=== PATIENT | female | born 1930 | race African-American/Black ===

== ENCOUNTER 2021-06-20 18:59 | Inpatient (IN) | payer MEDICARE, MEDICAID ==
[~2021-06-20] VITALS: Ht 167.6 cm; Wt 68.0 kg
[~2021-06-20 18:59] MED LIST: DILTIAZEM; DIOVAN
[2021-06-20 20:13] LABS: CHLORIDE 101 mEq/L (98-107)
[2021-06-20 20:15] LABS: BASOPHILS % 0.5 % (0.0-2.0); EOSINOPHILS % 0.4 % (0.0-5.0); HEMATOCRIT. 41.5 % (36.0-48.0); HEMOGLOBIN. 13.8 g/dL (12.0-16.0); LYMPHOCYTES % 9.7 % (20.0-50.0); MEAN CORPUSCULAR HEMOGLOBIN 26.2 pg (28.0-32.0); MEAN CORPUSCULAR VOLUME 78.9 fL (81.0-99.0); MEAN PLATELET VOLUME 7.8 fl (7.4-10.4); MONOCYTES % 12.5 % (2.0-8.0); NEUTROPHILS % 76.9 % (40.0-76.0); PLATELET 309 x1000/uL (130-400); RED BLOOD CELL COUNT 5.26 mill/uL (4.2-5.4); RED CELL DISTRIBUTION WIDTH 14.1 % (11.6-14.6)
[2021-06-20] MEDS ORDERED: CEFTRIAXONE 1 G PREMIX 50 ML IV ONE (22:45)
[2021-06-20] MEDS ORDERED: AZITHROMYCIN 500MG/250ML 250 ML IV ONE (22:45)
[2021-06-21] MEDS ORDERED: METOPROLOL TARTRATE 5MG/5ML VIAL IV SCH (02:30)
[2021-06-21] MEDS ORDERED: METOPROLOL SUCCINATE 50MG ER TABLET PO STA (03:34)
[2021-06-21] MEDS ORDERED: SODIUM CHLORIDE 0.9% 500 ML IV ONE (06:15)
[2021-06-21] MEDS ORDERED: DIGOXIN 500MCG/2ML AMP IV NR (06:45)
[2021-06-21] MEDS ORDERED: DIGOXIN 500MCG/2ML AMP IV SCH (07:45)
[2021-06-21] MEDS ORDERED: LORAZEPAM 0.5MG TABLET PO PRN (10:00)
[2021-06-21] MEDS ORDERED: MAGNESIUM/ALUMINUM HYDROXIDE/SIMETHICONE 30ML UDC PO PRN (10:00)
[2021-06-21] MEDS ORDERED: NA PHOS,M-B/NA PHOS,DI-BA ENEMA 118ML PR PRN (10:00)
[2021-06-21] MEDS ORDERED: CLONIDINE 0.1MG TABLET PO PRN (10:00)
[2021-06-21] MEDS: DEXAMETHASONE 10 MG/ML VIAL IV SCH (10:00)
[2021-06-21] MEDS ORDERED: ONDANSETRON HCL 4MG/2ML INJ IV PRN (10:00)
[2021-06-21] MEDS ORDERED: DEXTROSE 50% WATER 50ML SYRINGE IV PRN (10:00)
[2021-06-21] MEDS: DEXT 5%/0.9% NACL 1,000 ML IV SCH (10:00)
[2021-06-21] MEDS ORDERED: ACETAMINOPHEN 325MG TABLET PO PRN (10:00)
[2021-06-21] MEDS ORDERED: MORPHINE SULFATE 2 MG/ML CPJ (NOT FOR IM USE) IV PRN (10:00)
[2021-06-21] MEDS ORDERED: HYDROCODONE/ACETAMINOPHEN 5/325MG TABLET PO PRN (10:00)
[2021-06-21] MEDS ORDERED: DIPHENHYDRAMINE 50MG/ML VIAL IV PRN (10:00)
[2021-06-21] MEDS ORDERED: DOCUSATE SODIUM 100MG CAPSULE PO PRN (10:00)
[2021-06-21] MEDS ORDERED: ACETAMINOPHEN 650MG SUPP PR PRN (10:00)
[2021-06-21] MEDS ORDERED: GUAIFENESIN 200MG/10ML SUGAR FREE UDC PO PRN (10:00)
[2021-06-21] MEDS ORDERED: NALOXONE HCL 0.4MG/ML VIAL IV PRN (10:15)
[2021-06-21 11:10] LABS: BG BASE EXCESS 1.2 mmol/L (-2.0-2.0); BG CARBOXYHEMOGLOBIN 0.3 % (0.5-1.5); BG DEOXYHEMOGLOBIN 5.1 % (0.0-5.0); BG HCO3 ACT 25.6 mmol/L (22.0-26.0); BG METHEMOGLOBIN 0.1 % (0.0-1.5); BG OXYGEN SATURATION 94.9 % (92.0-98.5); BG OXYHEMOGLOBIN 94.5 % (94.0-97.0); BG PH 7.424 (7.350-7.450); BG PO2 76.2 mmHg (75.0-100.0); BG SAMPLE SITE RIGHT BRACHIAL; BG TOTAL HEMOGLOBIN 13.7 g/dL (12.0-18.0); BG VENT MODE NASAL CANNULA
[2021-06-21] MEDS: ALBUTEROL 6.7GM HFA INHALER ORI SCH ×2 (12:00→17:14)
[2021-06-21 12:02] LABS: INR 1.1; PROTHROMBIN TIME 11.7 sec (9.6-11.0)
[2021-06-21 12:03] LABS: CHLORIDE 102 mEq/L (98-107)
[2021-06-21] MEDS: ENOXAPARIN 80MG/0.8ML SYR SUBCUT SCH (13:00)
[2021-06-21] MEDS: INSULIN LISPRO 100 UNITS/ML SUBCUT SCH ×3 (13:20→22:02)
[2021-06-21] MEDS: BLOOD SUGAR DIAGNOSTIC STRIP TEST SCH ×3 (13:46→22:02)
[2021-06-21 17:57] LABS: CREATINE KINASE MB FRACTION 2.4 ng/mL (0.5-3.6)
[2021-06-21] MEDS: FAMOTIDINE 20MG TABLET PO SCH (22:00)
[2021-06-21] MEDS: AZITHROMYCIN 500 MG in DEXT 5% WATER 250 ML IV SCH (22:40)
[2021-06-21] MEDS ORDERED: CEFTRIAXONE 1 G PREMIX 50 ML IV SCH (23:00)
[2021-06-22] MEDS: ALBUTEROL 6.7GM HFA INHALER ORI SCH
[2021-06-22] MEDS: AZITHROMYCIN 500 MG in DEXT 5% WATER 250 ML IV SCH (00:07)
[2021-06-22] MEDS: ENOXAPARIN 80MG/0.8ML SYR SUBCUT SCH ×2 (01:00→14:13)
[2021-06-22] MEDS: DEXT 5%/0.9% NACL 1,000 ML IV SCH ×2 (02:40→21:55)
[2021-06-22] MEDS: BLOOD SUGAR DIAGNOSTIC STRIP TEST SCH ×4 (07:30→21:51)
[2021-06-22] MEDS: INSULIN LISPRO 100 UNITS/ML SUBCUT SCH ×4 (07:30→21:00)
[2021-06-22 09:32] LABS: BG BASE EXCESS 0.9 mmol/L (-2.0-2.0); BG CARBOXYHEMOGLOBIN 0.2 % (0.5-1.5); BG DEOXYHEMOGLOBIN 5.9 % (0.0-5.0); BG FRACTION INSPIRED OXYGEN 36; BG HCO3 ACT 25.5 mmol/L (22.0-26.0); BG METHEMOGLOBIN 0.2 % (0.0-1.5); BG OXYGEN SATURATION 94.1 % (92.0-98.5); BG OXYHEMOGLOBIN 93.7 % (94.0-97.0); BG PCO2 40.7 mmHg (35.0-45.0); BG PH 7.415 (7.350-7.450); BG PO2 71.4 mmHg (75.0-100.0); BG SAMPLE SITE RIGHT BRACHIAL; BG TOTAL HEMOGLOBIN 12.4 g/dL (12.0-18.0); BG VENT MODE NASAL CANNULA
[2021-06-22 10:06] LABS: BASOPHILS % 0.4 % (0.0-2.0); EOSINOPHILS % 0.2 % (0.0-5.0); HEMATOCRIT. 36.1 % (36.0-48.0); HEMOGLOBIN. 11.8 g/dL (12.0-16.0); LYMPHOCYTES % 18.4 % (20.0-50.0); MEAN CORPUSCULAR HEMOGLOBIN 26.1 pg (28.0-32.0); MEAN CORPUSCULAR VOLUME 79.7 fL (81.0-99.0); MEAN PLATELET VOLUME 7.3 fl (7.4-10.4); PLATELET 303 x1000/uL (130-400); RED BLOOD CELL COUNT 4.53 mill/uL (4.2-5.4); RED CELL DISTRIBUTION WIDTH 14.2 % (11.6-14.6)
[2021-06-22 10:18] LABS: CHLORIDE 109 mEq/L (98-107)
[2021-06-22 12:37] VITALS: BP 150/63
[2021-06-22] MEDS: ASPIRIN 81MG EC TABLET PO SCH (14:14)
[2021-06-22] MEDS: DILTIAZEM HCL 30MG TABLET PO SCH ×3 (14:24→22:03)
[2021-06-22] MEDS: DEXAMETHASONE 10 MG/ML VIAL IV SCH (14:30)
[2021-06-22] MEDS ORDERED: VALS160T28 PO (15:12)
[2021-06-22] MEDS ORDERED: TRIA1TAB92 MT (15:12)
[2021-06-22] MEDS ORDERED: DILT240C94 PO (15:12)
[2021-06-22] MEDS ORDERED: TRIA1TAB92 PO (15:23)
[2021-06-22 16:00] VITALS: BP 122/56
[2021-06-22 20:00] VITALS: BP 115/57
[2021-06-22] MEDS ORDERED: AZITHROMYCIN 500 MG TABLET PO SCH (21:00)
[2021-06-22] MEDS: FAMOTIDINE 20MG TABLET PO SCH (21:54)
[2021-06-22] MEDS ORDERED: AZITHROMYCIN 500 MG in DEXT 5% WATER 250 ML IV SCH (22:00)
[2021-06-22] MEDS ORDERED: CEFTRIAXONE 1,000 MG in DEXTROSE 5% WATER 50 ML IV SCH (23:00)
[2021-06-23] VITALS: BP 126/59
[2021-06-23] MEDS: ENOXAPARIN 80MG/0.8ML SYR SUBCUT SCH ×2 (01:00→12:43)
[2021-06-23 04:00] VITALS: BP 125/53
[2021-06-23] MEDS: BLOOD SUGAR DIAGNOSTIC STRIP TEST SCH ×2 (07:40→12:37)
[2021-06-23 08:00] VITALS: BP 141/60
[2021-06-23] MEDS: DILTIAZEM HCL 30MG TABLET PO SCH (08:00)
[2021-06-23] MEDS: INSULIN LISPRO 100 UNITS/ML SUBCUT SCH ×2 (08:45→12:44)
[2021-06-23] MEDS: ASPIRIN 81MG EC TABLET PO SCH (08:45)
[2021-06-23] MEDS: DEXAMETHASONE 10 MG/ML VIAL IV SCH (08:45)
[2021-06-23 11:18] LABS: BASOPHILS % 0.1 % (0.0-2.0); HEMATOCRIT. 37.4 % (36.0-48.0); HEMOGLOBIN. 12.1 g/dL (12.0-16.0); MEAN CORPUSCULAR HEMOGLOBIN 25.9 pg (28.0-32.0); MEAN CORPUSCULAR VOLUME 80.4 fL (81.0-99.0); MEAN PLATELET VOLUME 7.4 fl (7.4-10.4); MONOCYTES % 9.3 % (2.0-8.0); NEUTROPHILS % 76.6 % (40.0-76.0); PLATELET 364 x1000/uL (130-400); RED BLOOD CELL COUNT 4.66 mill/uL (4.2-5.4); RED CELL DISTRIBUTION WIDTH 14.2 % (11.6-14.6)
[2021-06-23 11:36] LABS: CHLORIDE 111 mEq/L (98-107)
[2021-06-23 12:00] VITALS: BP 138/57
[2021-06-23] MEDS ORDERED: AMLODIPINE 2.5MG TABLET PO SCH (12:00)
[2021-06-23] MEDS: DEXT 5%/0.9% NACL 1,000 ML IV SCH (12:32)
[2021-06-23 16:00] VITALS: BP 134/67
== END 2021-06-23 17:00 | disposition home health service (06) | DRG 871 ==
LOC: ER 18:59 → EDBEDREQ 06-21 01:38 → EDBEDREQDT 06-21 01:38 → EDBEDREQSVC 06-21 01:38 → EDBEDREQTM 06-21 01:38 → SUPCPDRO 06-21 13:21 → MICUSO 06-22 02:55 → 7WST 06-22 10:15
PROVIDERS: ADMIT Internal Medicine; ATTEND Internal Medicine
DX: A41.89 Other specified sepsis (principal); U07.1 COVID-19; J12.82 Pneumonia due to coronavirus disease 2019; E87.1 Hypo-osmolality and hyponatremia; G93.40 Encephalopathy, unspecified; D68.59 Other primary thrombophilia; E46 Unspecified protein-calorie malnutrition; I10 Essential (primary) hypertension; J45.909 Unspecified asthma, uncomplicated; R79.89 Other specified abnormal findings of blood chemistry; R77.8 Other specified abnormalities of plasma proteins; E11.65 Type 2 diabetes mellitus with hyperglycemia; R62.7 Adult failure to thrive; Z68.24 Body mass index [BMI] 24.0-24.9, adult; I48.0 Paroxysmal atrial fibrillation; I49.1 Atrial premature depolarization; I49.3 Ventricular premature depolarization; E05.90 Thyrotoxicosis, unspecified without thyrotoxic crisis or storm; I25.2 Old myocardial infarction; Z86.73 Personal history of transient ischemic attack (TIA), and cerebral infarction without residual deficits; Z78.9 Other specified health status
CPT/HCPCS: 36415; 36600; 71045; 74176; 80048; 80053; 82375; 82805; 82962; 83605; 83735; 83880; 84443; 84484; 85025; 93005; 93970; 96365; 96372; 96375; 97162; 99291; J0456; J0696; J1100; J1160; J1650; J1815; J3490; J7030; J7042; J7060